=== PATIENT | male | born 1970 | race Caucasian/White ===

== ENCOUNTER → 2021-11-07 08:10 | Outpatient (CLI) | payer OTHER, SELFPAY ==
--- NOTE | 2021-11-07 | DI.RAD.S_ITS ---
PROCEDURE: FL JOINT INJECTION MEDIUM RT INDICATIONS: Primary osteoarthritis, right shoulder COMPARISON: None. TECHNIQUE: The indications, alternatives, benefits, risks, and complications of the procedure were explained to the patient. Written informed consent was obtained and placed in the chart. The patient was placed in an appropriate position on the fluoroscopy table, and a site was chosen for percutaneous access under fluoroscopic guidance. The site was prepped and draped in a sterile fashion. Local anesthetic was administered using a 1% lidocaine solution. A hypodermic or spinal needle was then used to access the symptomatic joint. Intra-articular location of the needle tip was confirmed by injecting a small amount of contrast, followed by steroid administration. The needle was then withdrawn, and a bandage applied to the puncture site. FINDINGS: Joint injected: Right shoulder Medications injected: 6 mL of 40 mg/mL Kenalog and 0.5% Ropivacaine mixture. Patient's pain before injection: 7 out of 10. Patient's pain after injection: 2-4 out of 10. Complications: None. IMPRESSION: Successful fluoroscopically guided administration of steroid and anaesthetic solution into the right shoulder joint. Dictated by: Marlen Yanes M.D. on 11/07/2021 at 9:52 Approved by: Marlen Yanes M.D. on 11/07/2021 at 9:53
== END ==
PROVIDERS: Referring Provider Counselor Mental Health; Visit Provider Counselor Mental Health
DX: M19.011 Primary osteoarthritis, right shoulder (principal)
CPT/HCPCS: 20605; 77002

== ENCOUNTER → 2022-07-10 13:40 | Outpatient (CLI) | payer OTHER, SELFPAY ==
--- NOTE | 2022-07-10 13:42 | DI.ECHO.S_ITS ---
[place] [facility]---------+ [facility] +---------+ : : [address] : [place] : : : : [phone] : : : : Phone: [phone]---------+ Echocardiogram Report + + :Name: KIKI MÉNDEZ Study Date: 07/10/2022 Height: 77 in : :[facility] ReadingLocation: Weight: 213 lb : : Gender: Male BSA: 2.3 m2 : :: 1970 Age: 51 yrs BP: 123/76 mmHg: :Reason For Study: HYPERTENSION HR: 72 : :Ordering Physician: STEFAN, : :MEMO Performed By: OFE MUNOZ : :Referring: MEMO CHRISTY : + + Interpretation Summary 1) Upper normal left ventricular thickness with normal size and low normal systolic function (EF 50-55%). 2) Normal right ventricular size with mildly reduced function. 3) No significant valvular abnormalities. 4) The aortic root is mildly dilated at 4.0cm. 5) No prior Echo available for comparison. Procedure: A two-dimensional transthoracic echocardiogram with color flow and Doppler was performed. The study quality was technically adequate. There is no prior echocardiogram noted for this patient. The patient was in normal sinus rhythm during the exam. Left Ventricle: The left ventricle is grossly normal size. Left ventricular wall thickness is mildly increased. Left ventricular systolic function is low normal. The ejection fraction is estimated to be 50-55%. There are no focal wall motion abnormalities. Diastolic parameters suggest probable normal left ventricular diastolic function and normal filling pressures. Right Ventricle: The right ventricle is normal size. Right ventricular systolic function is mildly reduced. Atria: Both atria are normal in size. There is no Doppler evidence for an interatrial shunt. Mitral Valve: The mitral valve is normal in structure and function. There is trace mitral regurgitation. Aortic Valve: The aortic valve is trileaflet. The aortic valve opens well. There is no aortic valve stenosis. No aortic regurgitation is present. Tricuspid Valve: The tricuspid valve is normal in structure and function. No tricuspid regurgitation. Pulmonary artery pressures cannot be estimated because of the lack of a measurable TR jet velocity. Pulmonic Valve: The pulmonic valve leaflets are thin and pliable; valve motion is normal. There is mild pulmonic regurgitation. Great Vessels: The aortic root is mildly dilated. The ascending aorta is normal in size. The inferior vena cava appeared normal. Pericardium/ Pleura There is no pericardial effusion. There is no pleural effusion. MMode/2D Measurements & Calculations LVIDd: 4.8 cm LVOT diam: 2.2 cm LVIDs: 3.4 cm Ao root diam: 4.0 cm FS: 29.2 % asc Aorta Diam: 3.6 cm IVSd: 1.1 cm LVPWd: 1.0 cm LV ellis. diameter/BSA (cm/m^2): 2.1 LV sys. diameter/BSA (cm/m^2): 1.5 LA A2 area: 13.1 cm2 RA long axis: 4.5 cm LA A4 area: 10.1 cm2 LA length (vol): 3.8 cm LA vol: 29.5 ml LA vol index: 12.8 ml/m2 LVLs ap4: 7.8 cm LVLd ap2: 9.0 cm LVLs ap2: 7.6 cm TAPSE_phl: 1.3 cm Doppler Measurements & Calculations Ao V2 max: 93.6 cm/sec LVOT Max Nishant: 87.5 cm/sec Ao V2 mean: 65.7 cm/sec LV V1 max P.1 mmHg Ao max P.0 mmHg LV V1 VTI: 17.4 cm Ao mean P.0 mmHg LADI(I,D): 3.8 cm2 Ao V2 VTI: 17.3 cm LADI(V,D): 3.6 cm2 sev ratio: 1.0 LADI indexed to BSA (cm^2/m^2): 1.7 MV E max nishant: 53.6 cm/sec PA V2 max: 78.6 cm/sec MV A max nishant: 55.7 cm/sec PA V2 mean: 59.5 cm/sec MV E/A: 0.96 PA mean P.0 mmHg Med Peak E' Nishant: 6.3 cm/sec PA pr(Accel): 21.9 mmHg E/E' med: 8.5 Lat Peak E' Nishant: 8.4 cm/sec E/E' lat: 6.4 E/e' average: 7.4 MV dec time: 0.27 sec SV(LVOT): 66.1 ml AV VR_phl: 0.93 LADI(VTI)/BSA_phl: 1.7 MV P1/2t-pr_phl: 79.0 msec Reading Physician:12:57 PM
--- NOTE | 2022-07-10 13:43 | DI.NM.S_ITS ---
PROCEDURE: NM EXERCISE TREADMILL NON NUC COMPARISON: None INDICATIONS: Essential (primary) hypertension FINDINGS: Rest ECG sinus rhythm. Resting blood pressure 140/90. [place] protocol 10:11, maximum heart rate 189 bpm (112% peak predicted), maximum blood pressure 210/95, 12.8 METS, [place] 0%. Stress ECG sinus tachycardia, no ST segment changes or arrhythmias. The patient did not complain of exercise-induced chest pain. IMPRESSION: Low risk study. No evidence of exercise-induced ischemia or arrhythmia on ECG. Baseline hypertension. Normal heart rate response. Average exercise capacity. Dictated by: Kristy Agarwal D.O. on 07/10/2022 at 16:08 Approved by: Kristy Agarwal D.O. on 07/10/2022 at 16:11
[2022-07-10 16:50] LABS: Add Manual Diff / Slide Review NO; Basophils Absolute Auto 0 /uL (0-100); Basophils Percent Auto 0.5 % (0-2); Eosinophils Absolute Auto 0 /uL (0-450); Eosinophils Percent Auto 0.5 % (2-4); Hematocrit 48.3 % (41-53); Hemoglobin 16.4 g/dL (13.5-17.5); Lymphocytes Absolute Auto 1800 /uL (1100-4500); Lymphocytes Percent Auto 21.9 % (25-40); Mean Corpuscular Hemoglobin 30.2 PG (26-34); Mean Corpuscular Volume 88.9 fL (80-100); Monocytes Absolute Auto 700 /uL (0-900); Monocytes Percent Auto 8.1 % (3-14); Neutrophils Absolute Auto 5600 /uL (1500-7000); Platelet Count 294 X10^3/uL (150-400); Red Blood Cell Count 5.43 X10^6/uL (4.5-5.9); Red Cell Distribution Width 13.2 % (11.6-14.8)
[2022-07-10 16:58] LABS: Hemoglobin A1C% w Est Avg Glu 5.5 % (4.0-6.0)
[2022-07-10 17:08] LABS: BUN Creatinine Ratio 12.2 (6-22); Blood Urea Nitrogen 14 mg/dL (9-20); Calcium 9.2 mg/dL (8.4-10.2); Carbon Dioxide 28 mmol/L (22-32); Chloride 102 mmol/L (98-107); Cholesterol 167 mg/dL (140-199); Estimated Glomerular Filt Rate > 60 mL/min (>60); Glucose 74 mg/dL (70-100); HDL Cholesterol 39 mg/dL (40-60); HEMOLYSIS < 15 (0-50); LDL Cholesterol Calculated 106 mg/dL (<100); Sodium 138 mmol/L (137-145); Triglycerides 109 mg/dL (35-150)
== END ==
PROVIDERS: Referring Provider Internal Medicine Cardiovascular Disease; Visit Provider Internal Medicine Cardiovascular Disease
DX: I77.810 Thoracic aortic ectasia (principal); R06.09 Other forms of dyspnea; I10 Essential (primary) hypertension
CPT/HCPCS: 36415; 80048; 80061; 83036; 85025; 93017; 93306